=== PATIENT | male | born 1970 | race Caucasian/White ===

== ENCOUNTER 2020-01-26 16:44 | Emergency (ER) | payer SELFPAY ==
--- NOTE | 2020-01-26 16:53 | EDM.PDOC ---
ED HPI GENERAL MEDICAL PROBLEM - General Stated Complaint: LOWER BACK PAIN, FEVER Time Seen by Provider: 01/26/20 16:46 Source of Information: Reports: Patient History Limitations: Reports: No Limitations - History of Present Illness INITIAL COMMENTS - FREE TEXT/NARRATIVE: 49-year-old male presents for flulike symptoms. Patient first noted symptoms when waking up this morning. He notes that he got off work 2 days ago, and has been asleep for nearly 2 entire days. Woke up with body aches, diaphoresis, shortness of breath, productive cough, nausea, low back pain. He denies any known Covid exposure. He thinks he had a fever this morning. back pain Pain Score (Numeric/FACES): 8 - Related Data Allergies Allergy/AdvReac Type Severity Reaction Status Date / Time No Known Allergies Allergy Verified 01/26/20 17:02 Home Meds: Home Meds . [No Known Home Meds] 02/11/18 [History] Past Medical History - Past Health History Medical/Surgical History: Denies Medical/Surgical History - Infectious Disease History Infectious Disease History: Reports: None Social & Family History - Family History Family Medical History: Noncontributory - Caffeine Use Caffeine Use: Reports: None ED ROS GENERAL - Review of Systems Review Of Systems: Comprehensive ROS is negative, except as noted in HPI. ED EXAM, GENERAL - Physical Exam Exam: See Below Exam Limited By: No Limitations General Appearance: Alert, WD/WN, No Apparent Distress Ears: Normal External Exam Nose: Normal Inspection Throat/Mouth: Normal Inspection, Normal Voice, No Airway Compromise Head: Atraumatic, Normocephalic Respiratory/Chest: No Respiratory Distress, Lungs Clear, Normal Breath Sounds, No Accessory Muscle Use Cardiovascular: Normal Peripheral Pulses, Tachycardia Extremities: Normal Inspection Neurological: Alert Psychiatric: Normal Affect, Normal Mood Skin Exam: Warm, Dry, Intact, Normal Color Course - Vital Signs Last Recorded V/S: Last Vital Signs Temp 100.9 F H 01/26/20 16:58 Pulse 97 01/26/20 17:58 Resp 16 01/26/20 16:58 BP 131/92 H 01/26/20 17:58 Pulse Ox 95 01/26/20 17:58 - Orders/Labs/Meds Orders: Active Orders 24 hr Category Date Time Status CORONAVIRUS COVID-19 PCR PHL Stat Lab 01/26/20 17:25 Received Sodium Chloride 0.9% [Saline Flush] Med 01/26/20 17:00 Active 10 ml FLUSH ASDIRECTED PRN Sodium Chloride 0.9% [Saline Flush] Med 01/26/20 17:00 Active 2.5 ml FLUSH ASDIRECTED PRN Saline Lock Insert [OM.PC] Stat Oth 01/26/20 17:01 Ordered Medication Orders Sodium Chloride (Saline Flush) 10 ml FLUSH ASDIRECTED PRN PRN Reason: Keep Vein Open Last Admin: 01/26/20 17:15 Dose: 10 ml Documented by: BETTY Sodium Chloride (Saline Flush) 2.5 ml FLUSH ASDIRECTED PRN PRN Reason: Keep Vein Open Last Admin: 01/26/20 17:15 Dose: 2.5 ml Documented by: BETTY Labs: Laboratory Tests 01/26/20 01/26/20 01/26/20 Range/Units 17:15 17:15 17:15 WBC 6.98 (4.0-11.0) K/uL RBC 5.77 (4.50-5.90) M/uL Hgb 17.3 H (13.0-17.0) g/dL Hct 49.7 (38.0-50.0) % MCV 86.1 (80.0-98.0) fL MCH 30.0 (27.0-32.0) pg MCHC 34.8 (31.0-37.0) g/dL RDW Std Deviation 40.1 (28.0-62.0) fl RDW Coeff of Tashi 13 (11.0-15.0) % Plt Count 171 (150-400) K/uL MPV 10.00 (7.40-12.00) fL Neut % (Auto) 74.8 (48.0-80.0) % Lymph % (Auto) 19.1 (16.0-40.0) % [place] % (Auto) 5.7 (0.0-15.0) % Eos % (Auto) 0.3 (0.0-7.0) % Baso % (Auto) 0.1 (0.0-1.5) % Neut # (Auto) 5.2 (1.4-5.7) K/uL Lymph # (Auto) 1.3 (0.6-2.4) K/uL [place] # (Auto) 0.4 (0.0-0.8) K/uL Eos # (Auto) 0.0 (0.0-0.7) K/uL Baso # (Auto) 0.0 (0.0-0.1) K/uL Nucleated RBC % 0.0 /100WBC Nucleated RBCs # 0 K/uL Lactate 1.5 (0.20-2.00) mmol/L Sodium 134 L (136-148) mmol/L Potassium 3.9 (3.5-5.1) mmol/L Chloride 99 (98-107) mmol/L Carbon Dioxide 24.1 (21.0-32.0) mmol/L BUN 17 (7.0-18.0) mg/dL Creatinine 1.4 H (0.8-1.3) mg/dL Est Cr Clr Drug Dosing 70.83 mL/min Estimated GFR (MDRD) 54.1 ml/min Glucose 130 H (74-106) mg/dL Calcium 8.8 (8.5-10.1) mg/dL Total Bilirubin 0.6 (0.2-1.0) mg/dL AST 41 H (15-37) IU/L ALT 62 (14-63) IU/L Alkaline Phosphatase 76 (46-116) U/L Troponin I < 0.050 (0.000-0.056) ng/mL C-Reactive Protein 5.30 H (0.00-0.90) mg/dL Total Protein 7.6 (6.4-8.2) g/dL Albumin 3.6 (3.4-5.0) g/dL Globulin 4.0 (2.6-4.0) g/dL Albumin/Globulin Ratio 0.9 (0.9-1.6) SARS CoV-2 RNA Rapid BRENDA (NEGATIVE) 01/26/20 Range/Units 17:25 WBC (4.0-11.0) K/uL RBC (4.50-5.90) M/uL Hgb (13.0-17.0) g/dL Hct (38.0-50.0) % MCV (80.0-98.0) fL MCH (27.0-32.0) pg MCHC (31.0-37.0) g/dL RDW Std Deviation (28.0-62.0) fl RDW Coeff of Tashi (11.0-15.0) % Plt Count (150-400) K/uL MPV (7.40-12.00) fL Neut % (Auto) (48.0-80.0) % Lymph % (Auto) (16.0-40.0) % [place] % (Auto) (0.0-15.0) % Eos % (Auto) (0.0-7.0) % Baso % (Auto) (0.0-1.5) % Neut # (Auto) (1.4-5.7) K/uL Lymph # (Auto) (0.6-2.4) K/uL [place] # (Auto) (0.0-0.8) K/uL Eos # (Auto) (0.0-0.7) K/uL Baso # (Auto) (0.0-0.1) K/uL Nucleated RBC % /100WBC Nucleated RBCs # K/uL Lactate (0.20-2.00) mmol/L Sodium (136-148) mmol/L Potassium (3.5-5.1) mmol/L Chloride (98-107) mmol/L Carbon Dioxide (21.0-32.0) mmol/L BUN (7.0-18.0) mg/dL Creatinine (0.8-1.3) mg/dL Est Cr Clr Drug Dosing mL/min Estimated GFR (MDRD) ml/min Glucose (74-106) mg/dL Calcium (8.5-10.1) mg/dL Total Bilirubin (0.2-1.0) mg/dL AST (15-37) IU/L ALT (14-63) IU/L Alkaline Phosphatase (46-116) U/L Troponin I (0.000-0.056) ng/mL C-Reactive Protein (0.00-0.90) mg/dL Total Protein (6.4-8.2) g/dL Albumin (3.4-5.0) g/dL Globulin (2.6-4.0) g/dL Albumin/Globulin Ratio (0.9-1.6) SARS CoV-2 RNA Rapid BRENDA POSITIVE H (NEGATIVE) Meds: Medications Generic Name Dose Route Start Last Admin Trade Name Freq PRN Reason Stop Dose Admin Sodium Chloride 10 ml 01/26/20 17:00 01/26/20 17:15 Saline Flush FLUSH 10 ml ASDIRECTED PRN Administration Keep Vein Open Sodium Chloride 2.5 ml 01/26/20 17:00 01/26/20 17:15 Saline Flush FLUSH 2.5 ml ASDIRECTED PRN Administration Keep Vein Open Discontinued Medications Generic Name Dose Route Start Last Admin Trade Name Anna PRN Reason Stop Dose Admin Acetaminophen 1,000 mg 01/26/20 17:00 01/26/20 17:14 Tylenol Extra Strength PO 01/26/20 17:01 1,000 mg ONETIME ONE Administration Sodium Chloride 1,000 mls @ 999 mls/hr 01/26/20 17:00 01/26/20 17:15 Normal Saline IV 01/26/20 18:00 999 mls/hr .Bolus ONE Administration Ketorolac Tromethamine 15 mg 01/26/20 17:02 01/26/20 17:14 Toradol IVPUSH 01/26/20 17:03 15 mg ONETIME ONE Administration - Re-Assessments/Exams Free Text/Narrative Re-Assessment/Exam: 01/26/20 17:04 Patient presents with Covid-like symptoms. Will get labs, Covid swab, chest x- ray. 01/26/20 18:13 Patient's x-ray remarkable for possible developing infiltrate, blood labs are largely unremarkable, COVID-19 testing is positive. At a long discussion with patient regarding his lab and imaging results. His oxygen saturations have been consistently above 94% in the emergency department on room air. His heart rate is normalized to 98 after IV fluid bolus and Toradol/Tylenol. Advised patient to stay well-hydrated, take Tylenol, Motrin for symptomatic relief at home. Advised patient to return to the emergency department if he is experiencing any worsening shortness of breath or chest pain. He understands and agrees with plan. He has willing and able to self quarantine. Departure - Departure Time of Disposition: 18:14 Disposition: Home, Self-Care 01 Condition: Good Clinical Impression: COVID-19 - Discharge Information Instructions: Prevent the Spread of COVID-19 if You Are Sick - CDC, COVID-19 Frequently Asked Questions, COVID-19: How to Protect Yourself and Others - CDC Referrals: PCP,None [Primary Care Provider] - Additional Instructions: Your work-up was remarkable for a positive COVID-19 test. Educational information about COVID-19 is provided in your discharge paperwork. Should you start to develop worsening chest pain or shortness of breath, you are encouraged to come back to the hospital for reassessment. Otherwise continue to take Tylenol and Motrin for control of your fever, and be sure to stay hydrated by drinking plenty of fluids. Thank you for allowing us to participate in your medical care today. The following information is given to patients seen in the emergency department who are being discharged to home. This information is to outline your options for follow-up care. We provide all patients seen in our emergency department with a follow-up referral. The need for follow-up, as well as the timing and circumstances, are variable depending upon the specifics of your emergency department visit. If you don't have a primary care physician on staff, we will provide you with a referral. We always advise you to contact your personal physician following an emergency department visit to inform them of the circumstance of the visit and for follow-up with them and/or the need for any referrals to a consulting specialist. The emergency department will also refer you to a specialist when appropriate. This referral assures that you have the opportunity for follow-up care with a specialist. All of these measure are taken in an effort to provide you with optimal care, which includes your follow-up. Under all circumstances we always encourage you to contact your private physician who remains a resource for coordinating your care. When calling for follow-up care, please make the office aware that this follow-up is from your recent emergency room visit. If for any reason you are refused follow-up, please contact the [facility] at and asked to speak to the emergency department charge nurse. Please follow up with your primary care physician. If you do not have a primary care physician, see below: [facility] [address] [place] [id number] [facility] [address] [place] [address] Sepsis Event Note (ED) - Focused Exam Vital Signs: Vital Signs Temp Pulse Resp BP Pulse Ox 10/29/20 17:58 97 131/92 H 95 01/26/20 16:58 100.9 F H 118 H 16 146/92 H 95 - My Orders Last 24 Hours: My Active Orders 01/26/20 17:00 Sodium Chloride 0.9% [Saline Flush] 10 ml FLUSH ASDIRECTED PRN Sodium Chloride 0.9% [Saline Flush] 2.5 ml FLUSH ASDIRECTED PRN 01/26/20 17:01 Saline Lock Insert [OM.PC] Stat 01/26/20 17:25 CORONAVIRUS COVID-19 PCR PHL Stat - Assessment/Plan Last 24 Hours: My Active Orders 01/26/20 17:00 Sodium Chloride 0.9% [Saline Flush] 10 ml FLUSH ASDIRECTED PRN Sodium Chloride 0.9% [Saline Flush] 2.5 ml FLUSH ASDIRECTED PRN 01/26/20 17:01 Saline Lock Insert [OM.PC] Stat 01/26/20 17:25 CORONAVIRUS COVID-19 PCR PHL Stat
[2020-01-26] MEDS ORDERED: Acetaminophen 500 MG Tab PO ONE (17:00)
[2020-01-26] MEDS ORDERED: Sodium Chloride 0.9% 2.5 ML Syringe FLUSH PRN (17:00)
[2020-01-26] MEDS ORDERED: Sodium Chloride 0.9% 10 ML Syringe FLUSH PRN (17:00)
[2020-01-26] MEDS ORDERED: Sodium Chloride 0.9% 1,000 ML IV ONE (17:00)
[2020-01-26] MEDS ORDERED: Ketorolac 15 MG/ML SDV IVPUSH ONE (17:02)
--- NOTE | 2020-01-26 17:41 | CR ---
INDICATION: Cough shortness of breath, possible salguero virus 19 infection TECHNIQUE: Chest 1 view COMPARISON: None FINDINGS: There is developing interstitial prominence with questionable developing airspace opacity in the peripheral left lung base. There is no pneumothorax or pleural effusion. The cardiac silhouette is within normal limits. The bony thorax is grossly intact. IMPRESSION: There is interstitial prominence as well as airspace opacities in the peripheral left lung base which may represent developing infiltrate. Dictated by Cristopher Walsh MD @ Jan 26 2020 5:37PM Signed by Dr. Cristopher Walsh @ Jan 26 2020 5:39PM
[2020-01-26 18:05] LABS: BLOOD UREA NITROGEN,BUN 17 mg/dL (7.0-18.0); CARBON DIOXIDE,CO2 24.1 mmol/L (21.0-32.0); CHLORIDE,CL 99 mmol/L (98-107); GLUCOSE RANDOM 130 mg/dL (74-106); POTASSIUM,K 3.9 mmol/L (3.5-5.1); SODIUM,NA 134 mmol/L (136-148)
== END 2020-01-26 18:43 | disposition home or self-care (01) ==
LOC: MW.ED 16:44
DX: U07.1 COVID-19 (principal)
CPT/HCPCS: 36415; 71045; 80053; 83605; 84484; 85025; 86140; 87635; 96374; 99283; A9270; J1885; J7030; 99282; U0002